=== PATIENT | male | born 1945 | race American Indian/Alaskan Native ===

== ENCOUNTER 2017-03-11 09:42 | Emergency (ER) | payer BC, MEDICARE ==
[2017-03-11 09:42] VITALS: BMI 28.6
[2017-03-11 10:14] VITALS: RESP 18; TEMP 98; O2SAT 100
--- NOTE | 2017-03-11 10:35 | ED PDOC ---
Arrival/HPI - General Chief Complaint: Abnormal Labs Time Seen by Provider: 03/11/17 09:59 Historian: Patient - History of Present Illness Narrative History of Present Illness (Text): 03/11/17 10:34 A 71 year old male presents to the emergency department for evaluation of low blood count. Patient reports to seeing PMD office yesterday, and was called today for low blood count. Patient reports red blood in stool, similar symptom three years ago. Patient is on Coumadin. Reports bloody stool developed after increased dosage of Coumadin. Patient denies any abdominal pain, fever, chest pain, shortness of breath, dizziness, palpitations or any other complaints at this time. PMD: Dr. Angel Symptom Onset: Sudden Symptom Course: Unchanged Activities at Onset: Rest Context: Home Past Medical History - Provider Review Nursing Documentation Reviewed: Yes - Infectious Disease Hx of Infectious Diseases: None - Tetanus Immunization Tetanus Immunization: Unknown - Past Medical History Past Medical History: Unable to Obtain - Cardiac Hx Hypertension: Yes Hx Peripheral Edema: Yes (right lower extremity) - Renal Hx Kidney Stones: Yes - Musculoskeletal/Rheumatological Hx Falls: No - Genitourinary/Gynecological Hx Prostate Problems: Yes (elevated psa, bph, slow void) - Psychiatric Hx Depression: No Hx Emotional Abuse: No Hx Physical Abuse: No Hx Substance Use: No - Past Surgical History Past Surgical History: Non-Contributing - Anesthesia Hx Anesthesia: No Hx Anesthesia Reactions: No - Suicidal Assessment Feels Threatened In Home Enviroment: No Family/Social History - Physician Review Nursing Documentation Reviewed: Yes Family/Social History: No Known Family HX Smoking Status: Never Smoked Hx Alcohol Use: No Hx Substance Use: No Hx Substance Use Treatment: No Allergies/Home Meds Allergies/Adverse Reactions: Allergies No Known Allergies Allergy (Verified 03/11/17 10:14) Home Medications: Home Meds Medication Instructions Recorded Confirmed Warfarin [Coumadin] 6 mg PO 10/09/12 10/09/12 Review of Systems - Physician Review All systems were reviewed & negative as marked: Yes - Review of Systems Constitutional: absent: Fevers Respiratory: absent: SOB Cardiovascular: absent: Chest Pain, Palpitations Gastrointestinal: Other (bloody stools). absent: Abdominal Pain Neurological: absent: Dizziness Physical Exam - Physical Exam Narrative Physical Exam (Text): 03/11/17 10:33 Constitutional: No acute distress. Head: Normocephalic. Atraumatic. Eyes: PERRL. ENT: Moist mucous membranes. Neck: Supple. Cardiovascular: Regular rate. Chest: No tenderness. Respiratory: Clear to auscultation bilaterally. GI: Soft. Nontender. Nondistended. Back: No CVA tenderness. Musculoskeletal: No tenderness or swelling of extremities. Skin: No rash. Neurologic: Alert, no focal deficit. Vital Signs Reviewed: Yes Vital Signs Temp Pulse Resp BP Pulse Ox 03/11/17 13:43 74 18 169/104 H 100 03/11/17 10:10 98 F 70 18 185/112 H 100 Temperature: Afebrile Blood Pressure: Hypertensive Pulse: Regular Respiratory Rate: Normal Appearance: Positive for: Well-Appearing, Non-Toxic, Comfortable Pain Distress: None Mental Status: Positive for: Alert and Oriented X 3 Medical Decision Making ED Course and Treatment: 03/11/17 10:33 Impression: A 71 year old male with low blood count and bloody stool. Plan: -- EKG -- chest xray -- labs -- Reassess and disposition Prior Visits: Notes and results from previous visits were reviewed. Patient was last seen in the emergency department on 10/21/12 for evaluation of left sided headache. Progress Notes: 03/11/17 11:08 EKG: Ordered, reviewed, and independently interpreted the EKG. Rate : 66 BPM Rhythm : NSR Interpretation : No ST or T wave changes 03/11/17 11:31 chest xray- Creator : Kenji Amaral MD IMPRESSION: No active disease. 03/11/17 13:31 Leaving Against Medical Advice (AMA): The patient is choosing to leave against medical advice. I have personally explained to the patient that choosing to do so may result in permanent bodily harm or . I have discussed at great length that without further evaluation and monitoring there may be unforeseen circumstances and/or deterioration causing permanent bodily harm or as a result of their choice. The patient is alert, oriented, and shows the mental capacity to make clear decisions regarding the patients health care at this time. The patient continues to wish to leave against medical advice. The patient has been advised that they should return to the emergency room immediately if they change their mind at any time, or if their condition begins to change or worsen in any way. Patient signed out prior to chemistry result. - Lab Interpretations Lab Results: 03/11/17 12:30 Lab Results 03/11/17 12:30: PT 89.9 H, INR 7.50 H*, APTT 64.8 H 03/11/17 12:30: WBC 4.7, RBC 3.46 L, Hgb 10.5 L, Hct 31.8 L, MCV 91.9, MCH 30.3 , MCHC 33.0, RDW 14.1, Plt Count 185, MPV 12.0 H, Gran % 64.2, Lymph % (Auto) 20.5 L, [place] % (Auto) 8.1 H, Eos % (Auto) 6.8 H, Baso % (Auto) 0.4, Gran # 3.00 , Lymph # 1.0 L, [place] # 0.4, Eos # 0.3, Baso # 0.02 I have reviewed the lab results: Yes - RAD Interpretation Radiology Orders: 03/11/17 10:29 CHEST PORTABLE [RAD] Stat - EKG Interpretation Interpreted by ED Physician: Yes Type: 12 lead EKG - Scribe Statement The provider has reviewed the documentation as recorded by the Jaime Moore Provider Scribe Attestation: All medical record entries made by the Jaime were at my direction and personally dictated by me. I have reviewed the chart and agree that the record accurately reflects my personal performance of the history, physical exam, medical decision making, and the department course for this patient. I have also personally directed, reviewed, and agree with the discharge instructions and disposition. Disposition/Present on Arrival - Present on Arrival Any Indicators Present on Arrival: Yes History of DVT/PE: Yes History of Uncontrolled Diabetes: No Urinary Catheter: No History of Decub. Ulcer: No History Surgical Site Infection Following: None - Disposition Have Diagnosis and Disposition been Completed?: Yes Diagnosis: Rectal bleed, Supratherapeutic INR, Left against medical advice Disposition: AGAINST MEDICAL ADVICE Disposition Time: 13:07 Patient Plan: Discharge Patient Problems: Current Active Problems Problem Status Onset Left against medical advice Acute Rectal bleed Acute Supratherapeutic INR Acute Condition: UNKNOWN Discharge Instructions (ExitCare): Rectal Bleeding (ED), Against Medical Advice (ED), Elevated INR (ED) Forms: [employer] (Hungarian)
--- NOTE | 2017-03-11 11:29 | RAD ---
HISTORY: GI bleed COMPARISON: 10/09/2012 FINDINGS: LUNGS: No active pulmonary disease. PLEURA: No significant pleural effusion identified, no pneumothorax apparent. CARDIOVASCULAR: Normal. OSSEOUS STRUCTURES: No significant abnormalities. VISUALIZED UPPER ABDOMEN: Normal. OTHER FINDINGS: None. IMPRESSION: No active disease.
--- NOTE | 2017-03-11 12:05 | CARD ---
APPROVED REPORT EKG Measurement Heart [id number] <Conclusion> Normal sinus rhythm with sinus arrhythmia Normal ECG
[2017-03-11 12:59] LABS: BASO # 0.02 K/mm3 (0.0-2.0); BASO % 0.4 % (0.0-3.0); EOS # 0.3 (0.0-0.7); EOS % 6.8 % (1.5-5.0); GRAN % 64.2 % (50.0-68.0); HEMOGLOBIN 10.5 g/dL (14.0-18.0); LYMPH % 20.5 % (22.0-35.0); MEAN CELL VOLUME 91.9 fl (80.0-105.0); MEAN CORPUSCULAR HEMOGLOBIN 30.3 pg (25.0-35.0); MONO # 0.4 (0.1-0.6); MONO % 8.1 % (1.0-6.0); RBC 3.46 10^6/uL (3.5-6.1); RED CELL DISTRIBUTION WIDTH 14.1 % (11.5-14.5); WHITE BLOOD COUNT 4.7 10^3/ul (4.5-11.0)
[2017-03-11 13:14] LABS: PARTIAL THROMBOPLASTIN TIME 64.8 Seconds (25.1-36.5); PROTHROMBIN TIME 89.9 SECONDS (9.4-12.5)
[2017-03-11 13:16] LABS: INR 7.5 (0.93-1.08)
[2017-03-11 13:47] VITALS: BP 169/104; PULSE 74
== END 2017-03-11 13:40 | disposition left against medical advice (07) ==
LOC: ED 09:42
DX: K62.5 Hemorrhage of anus and rectum (principal); R79.1 Abnormal coagulation profile; I10 Essential (primary) hypertension; Z79.01 Long term (current) use of anticoagulants